=== PATIENT | female | born 1935 | race Caucasian/White ===

== ENCOUNTER 2019-09-01 09:54 | Outpatient (CLI) | payer MEDICARE, OTHER ==
[2019-09-01 14:06] LABS: #Eosinphils 0.2 thou/uL (0.0-0.7); #Lymphocytes 2.2 thou/uL (1.20-3.40); #Monocytes 0.7 thou/uL (0.11-0.59); #Neutrophils 4.7 thou/uL (1.40-6.50); %Basophils 0.4 % (0.0-1.0); %Eosinophils 2.6 % (0.0-10.0); %Lymphocytes 27.6 % (21.0-51.0); %Monocytes 9.1 % (0.0-10.0); %Neutrophils 60.3 % (42.0-75.0); Hemoglobin 13.2 g/dL (12.0-16.0); Mean Corpuscular HGB CONC 31.7 g/dL (32.0-36.0); Mean Corpuscular Hemoglobin 26.7 pg (27.0-31.0); Mean Corpuscular Volume 84.3 fL (78.0-98.0); Mean Platelet Volume 8.5 fL (7.4-10.4); Platelet Count 229 thou/uL (130-400); RBC Distribution Width 13.4 % (11.5-14.5); Red Blood Cell (RBC) Count 4.93 mill/uL (4.20-5.40); White Blood Cell (WBC) Count 7.8 thou/uL (4.8-10.8)
[2019-09-01 14:28] LABS: Anion Gap 15 mmol/L (10-20); BUN (Urea Nitrogen) 14 mg/dL (9.8-20.1); Calc. Creatinine Clearance 0 mL/min (70-130); Calcium 9.8 mg/dL (7.8-10.44); Carbon Dioxide 24 mmol/L (23-31); Chloride 101 mmol/L (98-107); Estimated GFR-MDRD 63; Glucose 107 mg/dL (83-110); Sodium 136 mmol/L (136-145)
[2019-09-02 14:41] LABS: SARS-CoV-2 MS2 Positive; SARS-CoV-2 N Gene Negative; SARS-CoV-2 S Gene Negative; SARS-CoV-2 orf1ab Negative
== END 2019-09-01 09:55 | disposition home or self-care (01) ==
LOC: LABBT 09:54
PROVIDERS: ATTEND Neurological Surgery
DX: Z01.818 Encounter for other preprocedural examination (principal); Z11.59 Encounter for screening for other viral diseases; M54.12 Radiculopathy, cervical region
CPT/HCPCS: 80048; 85025; 93005; U0003; 87635; 93010

== ENCOUNTER 2019-09-06 06:13 | Observation (INO) | payer MEDICARE ==
[2019-09-03 12:50] VITALS: BMI 32.3
[2019-09-06] MEDS ORDERED: Sodium Chloride 0.9% 10 ML ONE (06:50)
[2019-09-06] MEDS ORDERED: Fentanyl 250 MCG/5 ML VIAL ONE (07:10)
[2019-09-06] MEDS ORDERED: SUGAMMADEX SODIUM 200 MG/2 ML VIAL ONE (09:34)
[2019-09-06] MEDS ORDERED: Promethazine HCl 25 MG/ML VIAL SLOW IVP PRN (09:53)
[2019-09-06] MEDS ORDERED: Ondansetron HCl/PF 4 MG/2 ML Vial IVP PRN (09:53)
[2019-09-06] MEDS ORDERED: Promethazine HCl 25 MG/ML VIAL IM PRN ×2 (09:53→14:38)
[2019-09-06] MEDS ORDERED: HYDROmorphone 2 MG/ML VIAL SLOW IVP PRN (09:53)
[2019-09-06] MEDS ORDERED: Meperidine HCl/PF 25 MG/ML VIAL SLOW IVP PRN (09:53)
[2019-09-06] MEDS ORDERED: EPHEDRINE 25 MG/5 ML SYRINGE ONE (09:54)
[2019-09-06] MEDS ORDERED: Dexamethasone 20 MG/5 ML VIAL ONE (09:54)
[2019-09-06] MEDS ORDERED: Lidocaine 1% PF 5 ML VIAL ONE (09:54)
[2019-09-06] MEDS ORDERED: Rocuronium Bromide 10 MG/ML (10ML VIAL) ONE (09:54)
[2019-09-06] MEDS ORDERED: PROPOFOL 200 MG/20 ML VIAL ONE (09:54)
[2019-09-06] MEDS ORDERED: Ondansetron PF 4 MG/2 ML Vial ONE (09:54)
[2019-09-06] MEDS ORDERED: Fentanyl 100 MCG/2 ML VIAL ONE ×2 (09:58→10:22)
--- NOTE | 2019-09-06 11:16 | OP ---
DATE OF PROCEDURE: 09/06/2019 ROUTE SALESMAN AND DRIVER: Caroline Delong PA-C PROCEDURES PERFORMED: Anterior cervical diskectomy C5-C6 and C6-C7, interbody arthrodesis, intervertebral biomechanical device, local morselized autograft, demineralized bone matrix, anterior titanium instrumentation C5-C6 and C6-C7. DESCRIPTION OF PROCEDURE: The patient was brought to the operating room and intubated. She was positioned supine with head in modest extension on gel-filled donut. An incision was made in the right precervical area and dissected medial to the sternocleidomastoid muscle. We identified the anterior cervical spine and the level was confirmed by x-ray. 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 We placed distraction from C5 through C7, debrided the anterior osteophytes and completely decompressed the intervertebral disk and decompressing the neural elements bilaterally. Next, bony endplates were decorticated for the purpose of arthrodesis and the bones were found to be extremely soft. An appropriate-sized intervertebral biomechanical PEEK device was brought into the field and filled with demineralized bone matrix and local morselized autograft, and tapped in place securely at C5-C6 and C6-C7. Next, an anterior plate was brought into the field and secured to C5, C6, and C7 using two 14-mm screws at each level. The wound was then extensively irrigated and MAC hemostasis was secured. The wound was closed in anatomic layers. Job ID: [id number]
[2019-09-06] MEDS ORDERED: Acetaminophen/Codeine 30-300mg Tablet PO PRN (14:38)
[2019-09-06] MEDS ORDERED: Promethazine 25 MG TAB PO PRN (14:38)
[2019-09-06] MEDS ORDERED: Mag-Al 1200 mg/1200 mg/30 ML UDCUP PO PRN (14:38)
[2019-09-06] MEDS ORDERED: diphenhydrAMINE 25 MG CAP PO PRN (14:38)
[2019-09-06] MEDS ORDERED: Morphine 4 MG/ML VIAL SLOW IVP PRN (14:38)
[2019-09-06] MEDS ORDERED: diphenhydrAMINE 50 MG/ML VIAL IVP PRN (14:38)
[2019-09-06] MEDS ORDERED: Morphine 2 MG/ML VIAL SLOW IVP PRN (14:38)
[2019-09-06] MEDS ORDERED: tiZANidine HCl 4 MG TAB PO PRN (14:38)
[2019-09-06] MEDS ORDERED: Promethazine HCl 12.5 MG SUPP PR PRN (14:38)
[2019-09-06] MEDS ORDERED: Milk Of Magnesia 30 ML UDCUP PO PRN (14:38)
[2019-09-06] MEDS ORDERED: traMADol HCl 50 MG TAB PO PRN ×2 (14:38)
[2019-09-06] MEDS ORDERED: Ondansetron PF 4 MG/2 ML Vial IVP PRN (14:39)
[2019-09-06] MEDS: Acetaminophen/Codeine 30-300mg Tablet PO PRN ×2 (14:55→22:38)
[2019-09-06] MEDS: Sodium Chloride 0.9% 1,000 ML IV SCH (14:57)
[2019-09-06] MEDS ORDERED: HumaLOG 300 UNITS/3 ML VIAL SC PRN (15:57)
[2019-09-06] MEDS ORDERED: Dextrose 50% Abboject 50 ML SYRINGE SLOW IVP PRN (15:57)
[2019-09-06] MEDS ORDERED: Dextrose 5% in Water 1,000 ML IV PRN (15:57)
--- NOTE | 2019-09-06 16:29 | CON ---
DATE OF CONSULTATION: 09/06/2019 REQUESTING PHYSICIAN: Main Ramirez MD PURPOSE: Medical management. HISTORY OF PRESENT ILLNESS: This is an 84-year-old female, who underwent a cervical diskectomy with neurosurgery today. The patient reports that she was feeling well prior to surgery with the exception of having pain and difficulty sleeping. She denies any nausea, vomiting or abdominal pain, denies any fevers or chills. PAST MEDICAL HISTORY: 1. Hypertension. 2. Diabetes mellitus with blood sugars in the 130s to 140s, fasting. 3. Dyslipidemia. 4. Reflux. PAST SURGICAL HISTORY: 1. Back surgery. 2. Leg surgery. FAMILY HISTORY: She had a mother with diabetes. SOCIAL HISTORY: The patient has 2 daughters, whom she reports are her surrogate decision makers, and she is a full code. The patient denies any alcohol or tobacco. ALLERGIES: NONE KNOWN. REVIEW OF SYSTEMS: Completely negative except for neck pain. MEDICATIONS: Reconciled with Jennie in [place], 1. Tylenol No. 3 one tablet as needed. 2. Amlodipine 5 mg daily. 3. Aspirin 325 mg daily. 4. Calcium carbonate/vitamin D3 one tablet daily. 5. Nexium 40 mg, she takes that with dinner. 6. Gabapentin 300 mg two tablets t.i.d. 7. Hydralazine 10 mg b.i.d. with food. 8. Losartan/hydrochlorothiazide 100/12.5 one tablet daily. 9. Metformin 500 mg in the morning and 1000 mg with supper. 10. Rosuvastatin 20 mg at bedtime. 11. Tramadol 50 mg as needed for pain. PHYSICAL EXAMINATION: VITAL SIGNS: 166/73 P86 R18 T97.8 96% on RA GENERAL: Awake, alert, and responsive, in no apparent distress. Able to answer questions appropriately. HEENT: Her pupils are equal and round. No scleral icterus. Oral mucosa is pink and dry. NECK: Supple. LUNGS: Clear to auscultation bilateral. No audible wheezing, rhonchi or rales. HEART: Normal S1 and S2. Regular rate and rhythm. No significant murmur. ABDOMEN: Soft with present bowel sounds. Nontender. Nondistended. EXTREMITIES: No clubbing, cyanosis or edema. VASCULAR: 2+ dorsalis pedis pulses. SKIN: No visible rashes. NEUROLOGIC: No focal deficits. PSYCHIATRIC: Appears euthymic. LABORATORY DATA: Reviewed from the chart. CBC preoperatively 7.8, 13.2, 41.6, and 229. Metabolic panel; 136, 4, 101, 24, 14, 0.86, 107 with a calcium of 9.8. EKG; sinus rhythm, normal axis, [place] interval is 206, normal QTc, no ST changes. Summary, first-degree AV block. IMPRESSION: 1. Status post neurosurgery today electively. 2. Hypertension, unknown control. 3. Dyslipidemia. 4. Diabetes mellitus, based on history, well controlled. 5. Gastroesophageal reflux disease. PLAN: 1. Postoperative care per Neurosurgery. 2. Continue her statin. 3. Hold aspirin per recommendation of Neurosurgery for 2 weeks. 4. We will order her amlodipine and hydralazine for now. With hold parameters to avoid hypotension. Add back the losartan/hydrochlorothiazide if her blood pressures are elevated, and her renal function remains normal. 5. Holding the metformin for now. Use insulin sliding scale. 6. Pain management per Neurosurgery. 7. DVT prophylaxis with pneumatic compression devices. 8. GI prophylaxis, not indicated, we will continue the PPI. 9. Code status is full. Surrogate decision makers are the patient's daughters. 10. Reviewed the plan of care and role of the hospitalist with the patient's care. No questions or further needs at the end of evaluation. Thank you for inviting us to participate in this patient's care. Please call with any questions at any time. Job ID: [id number] MTDD
[2019-09-06] MEDS: HumaLOG 300 UNITS/3 ML VIAL SC PRN (17:45)
[2019-09-06] MEDS ORDERED: Amlodipine 5 MG TAB PO SCH (21:00)
[2019-09-06] MEDS ORDERED: Rosuvastatin 20 MG TAB PO SCH (21:00)
[2019-09-06] MEDS: Gabapentin 300 MG CAP PO SCH (22:38)
[2019-09-06] MEDS: CEFAZOLIN 2 GM in Premix Bag 1 BAG IVPB SCH (23:03)
[2019-09-06] MEDS: hydrALAZINE 10 MG TAB PO SCH (23:12)
[2019-09-07] MEDS: Sodium Chloride 0.9% 1,000 ML IV SCH (03:58)
[2019-09-07 05:44] LABS: #Lymphocytes 1.6 thou/uL (1.20-3.40); #Neutrophils 8.1 thou/uL (1.40-6.50); %Basophils 0.3 % (0.0-1.0); %Eosinophils 0.3 % (0.0-10.0); %Neutrophils 75.5 % (42.0-75.0); Hemoglobin 12.1 g/dL (12.0-16.0); Mean Corpuscular Hemoglobin 26.6 pg (27.0-31.0); Mean Corpuscular Volume 83.3 fL (78.0-98.0); Mean Platelet Volume 8.4 fL (7.4-10.4); Platelet Count 224 thou/uL (130-400); RBC Distribution Width 13.3 % (11.5-14.5); Red Blood Cell (RBC) Count 4.55 mill/uL (4.20-5.40); White Blood Cell (WBC) Count 10.7 thou/uL (4.8-10.8)
[2019-09-07 06:03] LABS: Anion Gap 12 mmol/L (10-20); BUN (Urea Nitrogen) 11 mg/dL (9.8-20.1); Calc. Creatinine Clearance 80 mL/min (70-130); Calcium 9.1 mg/dL (7.8-10.44); Carbon Dioxide 25 mmol/L (23-31); Chloride 103 mmol/L (98-107); Estimated GFR-MDRD 71; Glucose 155 mg/dL (83-110); Potassium 4.1 mmol/L (3.5-5.1); Sodium 136 mmol/L (136-145)
[2019-09-07] MEDS: CEFAZOLIN 2 GM in Premix Bag 1 BAG IVPB SCH (06:06)
[2019-09-07] MEDS: hydrALAZINE 10 MG TAB PO SCH (08:10)
[2019-09-07] MEDS: Gabapentin 300 MG CAP PO SCH (08:11)
[2019-09-07 12:07] VITALS: BP 130/73; TEMP 97.9
[2019-09-07] MEDS: HumaLOG 300 UNITS/3 ML VIAL SC PRN (12:07)
--- NOTE | 2019-09-07 14:27 | DIS ---
DATE OF ADMISSION: 09/06/2019 DATE OF DISCHARGE: 09/07/2019 DISCHARGE DIAGNOSIS: Cervical spondylosis. DISCHARGE SUMMARY: The patient is an 84-year-old female recently evaluated in our office for progressive neck pain. She was found to have diffuse degenerative disease in C5-C7 and underwent C5-C7 ACDF on 09/06/2019. Following surgery, she was transitioned to the Med/Surg floor, where her pain was well controlled with p.o. medications, she was tolerating a regular diet, and she was voiding appropriately. She did have a LISA drain placed intraoperatively, which only had approximately 3 mL out overnight. On exam on postoperative day #1, the patient was awake, alert, in no acute distress. Her vital signs had remained stable. She had free active range of motion of all extremities. No focal motor weakness. She had some mild hoarseness in her voice, but was tolerating p.o. fine. Her LISA drain was removed on postoperative day #1 and the patient was dismissed to home. I have discussed home care precautions and the patient has scripts for Tylenol No.3 and tramadol at home. DENTAL TECHNICIAN INSTRUCTOR AWARicardo checked prior to discharge. Job ID: [id number]
== END 2019-09-07 13:49 | disposition home or self-care (01) ==
LOC: SDC 06:13 → SURG B 11:40
PROVIDERS: ADMIT Neurological Surgery; ATTEND Neurological Surgery
PROC: 0RG20A0 Fusion of 2 or more Cervical Vertebral Joints with Interbody Fusion Device, Anterior Approach, Anterior Column, Open Approach (ICD-10-PCS; principal; 2019-09-06)
PROC: 0RG2070 Fusion of 2 or more Cervical Vertebral Joints with Autologous Tissue Substitute, Anterior Approach, Anterior Column, Open Approach (ICD-10-PCS; 2019-09-06)
PROC: 0RT30ZZ Resection of Cervical Vertebral Disc, Open Approach (ICD-10-PCS; 2019-09-06)
DX: M47.22 Other spondylosis with radiculopathy, cervical region (principal); I10 Essential (primary) hypertension; E11.9 Type 2 diabetes mellitus without complications; E78.5 Hyperlipidemia, unspecified; K21.9 Gastro-esophageal reflux disease without esophagitis; Z79.82 Long term (current) use of aspirin; Z79.84 Long term (current) use of oral hypoglycemic drugs; Z79.899 Other long term (current) drug therapy
CPT/HCPCS: 20930; 20936; 22551; 22552; 22853 ×2; 76000; 80048; 82962 ×2; 85025; 97116; 97139 ×2; C1713 ×3; C1776; 36415; 36416; 96361; 96374; 96376; G0378; J0690; J1100; J2405; J2704; J3010; J3490

== ENCOUNTER 2020-11-16 12:35 | Outpatient (CLI) | payer MEDICARE | END 2020-11-16 12:36 | disposition home or self-care (01) | LOC: BICMRI 12:35 | PROVIDERS: ATTEND Chiropractor | DX: M99.03 Segmental and somatic dysfunction of lumbar region (principal); M99.02 Segmental and somatic dysfunction of thoracic region; M47.26 Other spondylosis with radiculopathy, lumbar region; M48.061 Spinal stenosis, lumbar region without neurogenic claudication; M25.78 Osteophyte, vertebrae; N28.1 Cyst of kidney, acquired | CPT/HCPCS: 72148 ==